=== PATIENT | male | born 1955 | race Caucasian/White ===

== ENCOUNTER 2016-09-12 15:16 | Emergency (ER) | payer OTHER ==
[~2016-09-12] VITALS: Ht 177.8 cm; Wt 65.8 kg
[2016-09-12 16:00] VITALS: BP 158/73
--- NOTE | 2016-09-12 16:30 | NUR ---
Patient ambulated to bed 04.
--- NOTE | 2016-09-12 16:35 | NUR ---
PT PRESENTS TO ER W/C/O ROBERTA EAR DRAINAGE AND ITCHING X1 YR.NO DRAINAGE/REDNESS NOTED ;HX PANCREATITIS. PT STATES HE IS SUFFERING TOO FROM MEMORY LOSS . DENIES N/V/D; SKIN IS PINK/WARM/DRY; AAOX4 WITH EVEN AND STEADY GAIT; LUNGS CLEAR BL; HR EVEN AND REGULAR; PT DENIES ANY FEVER, CP, SOB, OR COUGH AT THIS TIME; PATIENT STATES PAIN OF 0/10 AT THIS TIME.
--- NOTE | 2016-09-12 16:54 | NUR ---
Dr. Isaac evaluating patient at bedside.
[2016-09-12 17:27] LABS: ANION GAP 13.5 (8-16); CALCIUM 8.8 mg/dL (8.5-10.1); CARBON DIOXIDE 27.2 mmol/L (21-32); CREATININE 0.7 mg/dL (0.6-1.3); POTASSIUM 3.7 mmol/L (3.5-5.1)
--- NOTE | 2016-09-12 17:35 | NUR ---
ASKED PT IF HE IS ABLE TO GIVE A URINE SAMPLE;PT STATES "I DON'T FEEL LIKE URINATING RIGHT NOW"
--- NOTE | 2016-09-12 17:58 | NUR ---
Patient discharged with v/s stable. Written and verbal after care instructions given and explained. Patient verbalized understanding. Ambulatory with steady gait. All questions addressed prior to discharge. Advised to follow up with PMD.
[2016-09-12 18:00] VITALS: BP 142/87
== END 2016-09-12 17:58 | disposition home or self-care (01) ==
LOC: MED 15:16
DX: F03.90 Unspecified dementia, unspecified severity, without behavioral disturbance, psychotic disturbance, mood disturbance, and anxiety (principal)
CPT/HCPCS: 36415; 80048; 84484; 93005; 99285